=== PATIENT | male | born 1980 | race Caucasian/White ===

== ENCOUNTER 2017-06-20 01:26 | Emergency (ER) | payer MEDICAID ==
[~2017-06-20] VITALS: Ht 167.6 cm; Wt 97.2 kg
[2017-06-20 02:07] LABS: CLARITY,URINE CLEAR (Clear); COLOR,URINE YELLOW (Yellow); GLUCOSE, URINE NEGATIVE (Neg); KETONES,URINE NEGATIVE (Neg); LEUKOCYTE ESTERASE ,URINE NEGATIVE (Neg); NITRITES, URINE NEGATIVE (Neg); OCCULT BLOOD,URINE SMALL (Neg); PROTEIN,URINE NEGATIVE (Neg); UROBILINOGEN,URINE 0.2 E.U/dL (0.2-1.0)
[2017-06-20 02:08] LABS: UA COLLECTION TYPE CLN CATCH MIDSTREAM
[2017-06-20 02:10] LABS: BACTERIA,URINE NONE SEEN /HPF (Neg); MUCUS STRANDS MANY /LPF (Neg); SQUAMOUS EPITHELIAL CELL,UR FEW /LPF (FEW); WBC,URINE NONE SEEN /HPF (0-4)
[2017-06-20] MEDS ORDERED: IBUP-1985 PO (02:25)
[2017-06-20] MEDS ORDERED: ketorolac trometh. 30mg/ml inj. IM ONE (02:25)
[2017-06-20 02:44] VITALS: BP 156/93
== END 2017-06-20 02:45 | disposition home or self-care (01) ==
LOC: ER 01:27
DX: R10.9 Unspecified abdominal pain (principal); G89.29 Other chronic pain; F17.200 Nicotine dependence, unspecified, uncomplicated
CPT/HCPCS: 81001; 96372; 99283; J1885

== ENCOUNTER 2017-07-22 19:53 | Emergency (ER) | payer MEDICAID ==
[~2017-07-22] VITALS: Ht 172.7 cm; Wt 101.1 kg
[~2017-07-22 19:53] MED LIST: IBUP-1985 PO; METH4TAB81 PO
[2017-07-22] MEDS ORDERED: ipratropium/albuterol 3ml nebule NEB ONE (20:55)
[2017-07-22] MEDS ORDERED: ketorolac trometh. 30mg/ml inj. IV ONE (20:55)
[2017-07-22] MEDS ORDERED: methylPREDNISolone sod succ 125mg/2ml vial IV ONE (20:55)
[2017-07-22] MEDS ORDERED: HYDR-3965 PO (22:25)
[2017-07-22 22:41] VITALS: BP 144/86
== END 2017-07-22 22:43 | disposition home or self-care (01) ==
LOC: ER 19:53
DX: M19.012 Primary osteoarthritis, left shoulder (principal); R07.89 Other chest pain; G89.29 Other chronic pain
CPT/HCPCS: 71045; 93005; 94640; 94760; 96374; 96375; 99284; A4565; J1885; J2930